=== PATIENT | female | born 1955 | race Caucasian/White ===

== ENCOUNTER 2021-07-22 09:24 | Emergency (ER) | payer MEDICARE, OTHER, SELFPAY ==
[2021-07-22 09:30] VITALS: BP 138/89; PULSE 93; RESP 18; TEMP 36.7; O2SAT 99; BMI 31.4
--- NOTE | 2021-07-22 11:24 | ED_ITS ---
HPI - Back Pain/Injury General Chief Complaint: Back Pain/Injury Stated Complaint: Injured left side of back, swollen, trouble walkin Time Seen by Provider: 07/22/21 11:18 Source: patient and family Mode of arrival: Ambulatory Limitations: no limitations History of Present Illness HPI Narrative: This is a 66-year-old female who comes with complaint of left-sided low back pain radiating around to her front. Patient has had a history of back issues. She has been told she has nerve damage on that side. She used to use fentanyl patches daily as well as take [place] 3 times daily. She states she stopped using the fentanyl but has run out of her narcotic pain medication. She moved to the area 1-2 months ago. She is in process of establishing with Dr. Brenden ambriz but has not been able to see him yet. She does not recall a specific exacerbating incident but her sister states she has been bending over to sweep and twisting recently and she thought that may have worsened her symptoms. The pain radiates down her thigh no new numbness, tingling or weakness in her extremity. No loss of bowel or bladder control. No saddle anesthesia. No fevers. She denies any other symptoms or issues. She had 1 fentanyl patch left over that she put on at 2:00 a.m. this morning with minimal improvement. She does take medication for hypertension, dyslipidemia as well as chronic back and nerve pain. She takes gabapentin 300 mg in the morning and 600 mg in the evening. As well as medications for diabetes. She is allergic to trazodone. She has not had back surgery but has been recommended to have injections into her low back in the past. She has not pursued this before. Related Data Home Medications Medication Instructions Recorded Confirmed fentanyl 12 mcg/hr transdermal 1 patch TRANSDERMAL Q72H 07/22/21 07/22/21 patch hydrocodone 5 mg-acetaminophen 325 1 tab PO Q8H PRN 07/22/21 07/22/21 mg tablet Previous Rx's Medication Instructions Recorded gabapentin 300 mg capsule 600 mg PO TID #30 cap 07/22/21 hydrocodone 5 mg-acetaminophen 325 1 tab PO QID PRN #10 tab 07/22/21 mg tablet Allergies Allergy/AdvReac Type Severity Reaction Status Date / Time trazodone Allergy Severe Anaphylaxis Verified 07/22/21 09:42 Review of Systems Review of Systems ROS Unobtainable: All systems reviewed & are unremarkable except as noted in HPI and below Patient History Medical History Chronic back pain Social History Smoking Status: Current every day smoker Smoking Status: Current every day smoker alcohol intake frequency: 0-2 drinks per day Substance Use Type: does not use Exam Narrative Exam Narrative: GENERAL: Alert and oriented x three, female in mild distress. HEENT: Head normocephalic, atraumatic, EOMI, pupils reactive, face symmetric, moist mucous membranes NECK: Supple, full range of motion CARDIOVASCULAR: Regular rate and rhythm without murmurs, rubs or gallops. RESPIRATORY: Breath sounds equal bilaterally, no wheezes rales or rhonchi. ABDOMEN: Soft, nontender. Normoactive bowel sounds all 4 quadrants. No guarding or rebound, rigidity, no mass : No CVA tenderness BACK: No cervical, thoracic or lumbar vertebral point tenderness. Patient does have some mild tenderness at the SI joint. She is nontender wrapping around and in the left lower quadrant. She does not have any rash or skin changes, no warmth, erythema or fluctuance. Has slightly decreased range of motion. Patient's gait is mildly antalgic. Patient normally uses a cane. Rectal exam is deferred. Muscle strength is 5/5 in lower extremities, DTRs are 2/4 and lower extremities. Dorsalis pedis and tibialis pulses are 2+ and lower extremities. Sensation is intact in the lower extremities. EXTREMITIES: Normal range of motion, no clubbing or edema. Neurovascularly intact NEUROLOGICAL: Cranial nerves II through XII grossly intact. Moving all extremities SKIN: Warm, dry, no petechiae, no rashes or lesions. Initial Vital Signs Initial Vital Signs: Vital Signs Temperature 98.1 F 07/22/21 09:30 Pulse Rate 93 H 07/22/21 09:30 Respiratory Rate 18 07/22/21 09:30 Blood Pressure 138/89 07/22/21 09:30 Pulse Oximetry 99 07/22/21 09:30 Course Orders Ordered: Discontinued Medications Hydrocodone Bitart/Acetaminophen (Hydrocodone/Acet 5/325 Tablet) 2 tab PO NOW ONE Stop: 07/22/21 11:45 Last Admin: 07/22/21 12:20 Dose: 2 tab Documented by: SUSHILA Vital Signs Vital signs: Vital Signs - 8 hr 07/22/21 12:24 Temperature 98.1 F Pulse Rate 78 Respiratory Rate 16 Blood Pressure 158/90 H Pulse Oximetry 99 MDM - Back Pain/Injury MDM Narrative Medical decision making narrative: 66-year-old female comes in with acute on chronic low back pain. No significant exacerbating features or traumatic injury. She has been seen before told she has nerve injury. She has run out of her narcotic pain medication. She is on gabapentin but has not been optimized. She is given a short course of narcotic pain medication and prescription to increase her gabapentin. She does have a new physician that she is establishing with but has not been able to see them yet. Discharge Plan Departure Patient Disposition: Home Clinical Impression: Low back pain Instructions: DI for Back Pain With Sciatica Activity Restrictions/Additional Instructions: Follow-up with Dr. Coon for recheck. Also included is referral to Dr. Lowry at the pain management clinic if you are interested. He can call for an appointment. You can take ibuprofen up to 800 mg every 8 hours. Your maximum Tylenol amount would be 3000 mg in 24 hours. You may take 1-2 tablets of [place] every 6 hours as needed for pain. You may also increase your gabapentin to 2 tablets every 8 hours. This medication is more effective if taken regularly on a daily basis. Prescription sent to [facility] in [place]. Please return for fevers, rapidly worsening or uncontrolled pain, new numbness, weakness, loss of sensation, inability to lift or move your foot or leg, loss of bowel or bladder control or other new or concerning symptoms. Prescriptions: New hydrocodone-acetaminophen 5-325 mg tablet 1 tab PO QID PRN (Reason: pain) Qty: 10 0RF gabapentin 300 mg capsule 600 mg PO TID Qty: 30 0RF No Action hydrocodone-acetaminophen [[place]] 5-325 mg Tablet 1 tab PO Q8H PRN (Reason: Back Pain) 0RF Label Comments: ran out, requesting refill Rx Instructions: Pt unsure of mg strength fentanyl 12 mcg/hr Patch 72 Hour 1 patch TRANSDERMAL Q72H 0RF Label Comments: was discontinued, had extra patches so started using yesterday. Referrals: Yahir Naik DO [Physician] -
[2021-07-22] MEDS: HYDROCODONE/ACET 5/325 TABLET 2 TAB PO (12:20)
[2021-07-22 12:24] VITALS: BP 158/90; PULSE 78; RESP 16; TEMP 36.7; O2SAT 99
== END 2021-07-22 12:24 | disposition home or self-care (01) ==
PROVIDERS: Emergency Provider Emergency Medicine
DX: M54.50 Low back pain, unspecified (principal); G89.29 Other chronic pain; F17.200 Nicotine dependence, unspecified, uncomplicated
CPT/HCPCS: 99283

== ENCOUNTER 2021-07-25 08:50 | Emergency (ER) | payer MEDICARE, OTHER, SELFPAY ==
[2021-07-25 09:00] VITALS: BP 160/75; PULSE 87; RESP 15; TEMP 36.9; O2SAT 96; BMI 31.4
--- NOTE | 2021-07-25 09:18 | ED.BACK ---
HPI - Back Pain/Injury General Chief Complaint: Back Pain/Injury Stated Complaint: Lower back/Left side body- pain Time Seen by Provider: 07/25/21 08:54 Source: patient History of Present Illness HPI Narrative: 66-year-old female smoker with history of chronic back problems presents for the 2nd time this week. She denies any specific injury but has been in the process of moving and is noted that her left lower back has been increasingly painful. It does radiate around to her left anterior thigh. She denies any numbness, tingling or weakness. She denies any loss of control of bowel or bladder. She has no footdrop. She has no fever or chills and denies the use of blood thinners. Her pain is worse when she moves and improves with rest. She is new to the area and has not been able to establish with a new provider yet. Related Data Home Medications Medication Instructions Recorded Confirmed fentanyl 12 mcg/hr transdermal 1 patch TRANSDERMAL Q72H 07/22/21 07/22/21 patch hydrocodone 5 mg-acetaminophen 325 1 tab PO Q8H PRN 07/22/21 07/22/21 mg tablet Previous Rx's Medication Instructions Recorded gabapentin 300 mg capsule 600 mg PO TID #30 cap 07/22/21 hydrocodone 5 mg-acetaminophen 325 1 tab PO QID PRN #10 tab 07/22/21 mg tablet ketorolac 10 mg tablet 10 mg PO Q6H PRN #14 tab 07/25/21 lidocaine 5 % topical patch 1 patch TOP DAILY #15 each 07/25/21 (Lidoderm) Allergies Allergy/AdvReac Type Severity Reaction Status Date / Time trazodone Allergy Severe Anaphylaxis Verified 07/25/21 09:03 Review of Systems Review of Systems Narrative: GENERAL: Denies chills, fatigue, malaise, fever, sweats. HEENT: Denies sinus pain, ear pain, sore throat, difficulty swallowing, dizziness. RESPIRATORY: Denies dyspnea, cough, wheezing, hemoptysis, sputum. CARDIOVASCULAR: Denies chest pain, palpitations, orthopnea, edema, GASTROINTESTINAL: Denies nausea, vomiting, abdominal pain, diarrhea, constipation, melena. : Denies dysuria, frequency, incontinence, hematuria, urinary retention. MUSCULOSKELETAL: See HPI SKIN: Denies rash, skin lesions, or other NEUROLOGIC: Denies weakness, headache, numbness, change in speech, confusion, seizures, incoordination. PSYCHIATRIC: No concerning psychosocial issues. 12 point review of systems is negative except for those stated above Patient History Medical History Chronic back pain Social History Smoking Status: Current every day smoker Smoking Status: Current every day smoker alcohol intake frequency: holidays/special occasions only Substance Use Type: marijuana Exam Narrative Exam Narrative: GEN: AOx3 and in mild distress EYES: Pupils are equal, round, and reactive to light and accommodation. Extraoccular muscles are intact bilaterally. There is no subconjunctival hemorrhage or exudate. CHEST: Lungs are clear to auscultation bilaterally and free of wheezes, rales, or rhonchi. Heart rate is regular rhythm, there are no murmurs, clicks, rubs, or gallops. There is no chest wall tenderness. ABD: Abdomen is soft and nontender. There is no guarding or rebound. Bowel sounds are normal in all 4 quadrants. There is no mass or organomegaly. BACK: granulator tender but free of any obvious external abnormalities. Patient exam notes decreased range of motion and muscle spasm, but no CVA tenderness, or vertebral point tenderness. There are no symptoms of cauda equina such as saddle anesthesia, and decreased reflexes, decreased sensation or strength. EXT: Full painless ROM of all extremities with no loss of sensation or strength. SKIN: Warm, pink, and dry. No erythema or rash Initial Vital Signs Initial Vital Signs: Vital Signs Temperature 98.5 F 07/25/21 09:00 Pulse Rate 87 07/25/21 09:00 Respiratory Rate 15 07/25/21 09:00 Blood Pressure 160/75 H 07/25/21 09:00 Pulse Oximetry 96 07/25/21 09:00 Course Vital Signs Vital signs: Vital Signs - 8 hr 07/25/21 09:00 Temperature 98.5 F Pulse Rate 87 Respiratory Rate 15 Blood Pressure 160/75 H Pulse Oximetry 96 Discharge Plan Departure Patient Disposition: Home Clinical Impression: Acute back pain with radiculopathy Instructions: DI for Low Back Pain Activity Restrictions/Additional Instructions: *You have been diagnosed with [Acute lumbar pain with radiculopathy ] *What to do: *Please continue to take your regular medications as directed. [ x] New medication prescriptions sent to your pharmacy: [[facility] infrequent ] [ ] New medication written as a paper prescription [ ] No new medications given *Please follow up with your primary care provider in 2-3 days, call for an appointment. Let them know you were seen in the Emergency Department and that we ask that you be seen in follow up. We will electronically transmit a record of today's note if your PCP is in our system *If you do not have a primary care provider please contact the [facility] Resource line at [phone]. They will ask some questions about your medical history and help get you set up with a doctor in the community. *Return to Emergency Department if you should have any new, worsening or concerning symptoms, such as [fever greater than 101 F, shaking chills, worsening pain, persistent vomiting or other bothersome symptoms] Prescriptions: New ketorolac 10 mg tablet 10 mg PO Q6H PRN (Reason: pain) Qty: 14 0RF lidocaine [Lidoderm] 5 % adhesive patch,medicated 1 patch TOP DAILY Qty: 15 0RF Rx Instructions: leave on most painful area for 12 hrs No Action hydrocodone-acetaminophen [[place]] 5-325 mg Tablet 1 tab PO Q8H PRN (Reason: Back Pain) 0RF Label Comments: ran out, requesting refill Rx Instructions: Pt unsure of mg strength fentanyl 12 mcg/hr Patch 72 Hour 1 patch TRANSDERMAL Q72H 0RF Label Comments: was discontinued, had extra patches so started using yesterday. hydrocodone-acetaminophen 5-325 mg tablet 1 tab PO QID PRN (Reason: pain) Qty: 10 0RF gabapentin 300 mg capsule 600 mg PO TID Qty: 30 0RF Referrals: Jame Coon DO [Primary Care Provider] -
[2021-07-25] MEDS: LIDOCAINE PATCH 1 EACH ADH..PATCH TOP (09:22)
[2021-07-25] MEDS: KETOROLAC 30 MG/ML VIAL IM (09:23)
[2021-07-25 09:49] VITALS: BP 144/119; PULSE 81; O2SAT 94
== END 2021-07-25 09:49 | disposition home or self-care (01) ==
PROVIDERS: Emergency Provider Emergency Medicine; PCP Family Medicine
DX: M54.50 Low back pain, unspecified (principal); M54.10 Radiculopathy, site unspecified; F17.200 Nicotine dependence, unspecified, uncomplicated
CPT/HCPCS: 96372; 99283; J1885

== ENCOUNTER → 2021-09-12 08:34 | Outpatient (CLI) | payer MEDICARE, SELFPAY ==
[2021-09-12 10:22] LABS: Add Manual Diff / Slide Review NO; Basophils Absolute Auto 0 /uL (0-100); Basophils Percent Auto 0.3 % (0-2); Eosinophils Absolute Auto 300 /uL (0-450); Eosinophils Percent Auto 2.4 % (2-4); Hematocrit 39.9 % (36-46); Hemoglobin 13.6 g/dL (12.0-16.0); Lymphocytes Absolute Auto 3400 /uL (1100-4500); Lymphocytes Percent Auto 30.9 % (25-40); Mean Corpuscular Hemoglobin 30.5 PG (26-34); Mean Corpuscular Volume 89.7 fL (80-100); Monocytes Absolute Auto 600 /uL (0-900); Monocytes Percent Auto 5.6 % (3-14); Neutrophils Absolute Auto 6600 /uL (1500-7000); Neutrophils Percent Auto 60.8 % (50-75); Platelet Count 360 X10^3/uL (150-400); Red Blood Cell Count 4.44 X10^6/uL (4.0-5.2); Red Cell Distribution Width 14.3 % (11.6-14.8); White Blood Cell Count 10.9 X10^3/uL (4.5-11.0)
[2021-09-12 10:29] LABS: Hemoglobin A1C% w Est Avg Glu 8.1 % (4.0-6.0)
[2021-09-12 10:57] LABS: Alanine Aminotransferase 15 IU/L (<35); Albumin 3.9 g/dL (3.5-5.0); Albumin Globulin Ratio 1.6 (1.0-2.8); Alkaline Phosphatase 85 U/L (38-126); Aspartate Aminotransferase 22 IU/L (14-36); BUN Creatinine Ratio 18.8 (6-22); Bilirubin Total 0.4 mg/dL (0.2-1.3); Blood Urea Nitrogen 13 mg/dL (7-17); Calcium 9.5 mg/dL (8.4-10.2); Carbon Dioxide 30 mmol/L (22-32); Chloride 105 mmol/L (98-107); Cholesterol 129 mg/dL (140-199); Estimated Glomerular Filt Rate > 60.0 mL/min (>60); Globulin 2.5 g/dL (1.7-4.1); Glucose 103 mg/dL (80-110); HDL Cholesterol 45 mg/dL (40-60); HEMOLYSIS < 15 (0-50); LDL Cholesterol Calculated 66 mg/dL (<100); Potassium 4.5 mmol/L (3.4-5.1); Sodium 139 mmol/L (137-145); Total Protein 6.4 g/dL (6.3-8.2); Triglycerides 91 mg/dL (35-150)
[2021-09-12 11:04] LABS: Vitamin D 25 Hydroxy (D3) 17.9 ng/mL (30.0-100.0)
== END ==
PROVIDERS: PCP Family Medicine; Referring Provider Family Medicine; Visit Provider Family Medicine
DX: E11.9 Type 2 diabetes mellitus without complications (principal); E55.9 Vitamin D deficiency, unspecified; Z79.4 Long term (current) use of insulin
CPT/HCPCS: 36415; 80053; 80061; 82306; 83036; 85025

== ENCOUNTER → 2021-12-17 10:30 | Outpatient (CLI) | payer MEDICARE, SELFPAY ==
[2021-12-17 12:06] LABS: Hemoglobin A1C% w Est Avg Glu 8.3 % (4.0-6.0)
== END ==
PROVIDERS: PCP Family Medicine; Referring Provider Family Medicine; Visit Provider Family Medicine
DX: E11.9 Type 2 diabetes mellitus without complications (principal); Z79.4 Long term (current) use of insulin
CPT/HCPCS: 36415; 83036

== ENCOUNTER → 2022-04-01 08:16 | Outpatient (CLI) | payer MEDICARE, SELFPAY ==
[2022-04-01 10:09] LABS: Hematocrit 41.3 % (36-46); Hemoglobin 14.1 g/dL (12.0-16.0); Mean Corpuscular HGB Conc 34.2 % (30-36); Mean Corpuscular Hemoglobin 29.9 PG (26-34); Mean Corpuscular Volume 87.6 fL (80-100); Platelet Count 355 X10^3/uL (150-400); Red Blood Cell Count 4.72 X10^6/uL (4.0-5.2); White Blood Cell Count 8.3 X10^3/uL (4.5-11.0)
[2022-04-01 10:18] LABS: Alanine Aminotransferase 15 IU/L (<35); Albumin 4.1 g/dL (3.5-5.0); Albumin Globulin Ratio 1.6 (1.0-2.8); Alkaline Phosphatase 79 U/L (38-126); Aspartate Aminotransferase 20 IU/L (14-36); BUN Creatinine Ratio 16.9 (6-22); Bilirubin Total 0.4 mg/dL (0.2-1.3); Blood Urea Nitrogen 13 mg/dL (7-17); Calcium 9.2 mg/dL (8.4-10.2); Carbon Dioxide 30 mmol/L (22-32); Chloride 103 mmol/L (98-107); Estimated Glomerular Filt Rate > 60 mL/min (>60); Globulin 2.5 g/dL (1.7-4.1); Glucose 96 mg/dL (80-110); HEMOLYSIS < 15 (0-50); Potassium 4.4 mmol/L (3.4-5.1); Sodium 139 mmol/L (137-145); Total Protein 6.6 g/dL (6.3-8.2)
[2022-04-01 10:37] LABS: Hemoglobin A1C% w Est Avg Glu 7.1 % (4.0-6.0)
== END ==
PROVIDERS: PCP Family Medicine; Referring Provider Family Medicine; Visit Provider Family Medicine
DX: E11.9 Type 2 diabetes mellitus without complications (principal); Z79.4 Long term (current) use of insulin
CPT/HCPCS: 36415; 80053; 83036; 85027

== ENCOUNTER → 2022-04-04 12:29 | Outpatient (CLI) | payer MEDICARE, SELFPAY ==
--- NOTE | 2022-04-04 12:31 | DI.RAD.S_ITS ---
PROCEDURE: XR HAND RT MIN 3V INDICATIONS: pain in thumb and digits 2,3 TECHNIQUE: 3 views of the hand(s) acquired. COMPARISON: None. FINDINGS: Bones: No fractures or dislocations. Carpal bones are normally aligned. No suspicious bony lesions. Generalized decrease in osseous mineralization noted. Soft tissues: No suspicious soft tissue calcifications. IMPRESSION: Osteopenia without fracture or foreign body Approved by: Emir Irwin M.D. on 04/04/2022 at 15:21
[2022-04-04 13:46] LABS: C-Reactive Protein Quant < 0.5 mg/dL (<1.0); Erythrocyte Sedimentation Rate 7 MM/HR (0-20); Rheumatoid Factor < 8.6 IU/mL (<12.0); Uric Acid 3.7 mg/dL (2.5-6.2)
[2022-04-08 22:57] LABS: CCP Antibodies IgG/IgA 7 units (0-19)
== END ==
PROVIDERS: PCP Family Medicine; Referring Provider Family Medicine; Visit Provider Family Medicine
DX: M79.644 Pain in right finger(s) (principal); M79.89 Other specified soft tissue disorders
CPT/HCPCS: 36415; 73130; 84550; 85651; 86140; 86200; 86430

== ENCOUNTER → 2022-04-23 10:27 | Outpatient (CLI) | payer MEDICARE, SELFPAY | PROVIDERS: PCP Family Medicine; Referring Provider Family Medicine; Visit Provider Family Medicine | DX: Z13.820 Encounter for screening for osteoporosis (principal); M85.852 Other specified disorders of bone density and structure, left thigh; Z78.0 Asymptomatic menopausal state | CPT/HCPCS: 77080; 77081 ==

== ENCOUNTER → 2022-09-09 10:28 | Outpatient (CLI) | payer MEDICARE, MEDICAID, SELFPAY ==
[2022-09-09 11:57] LABS: Hemoglobin A1C% w Est Avg Glu 7.5 % (4.0-6.0)
[2022-09-09 11:58] LABS: Add Manual Diff / Slide Review NO; Basophils Absolute Auto 0 /uL (0-100); Basophils Percent Auto 0.5 % (0-2); Eosinophils Absolute Auto 100 /uL (0-450); Eosinophils Percent Auto 1.2 % (2-4); Hematocrit 41.7 % (36-46); Hemoglobin 13.9 g/dL (12.0-16.0); Lymphocytes Absolute Auto 2300 /uL (1100-4500); Lymphocytes Percent Auto 33.4 % (25-40); Mean Corpuscular HGB Conc 33.3 % (30-36); Mean Corpuscular Hemoglobin 29.2 PG (26-34); Mean Corpuscular Volume 87.8 fL (80-100); Monocytes Absolute Auto 500 /uL (0-900); Monocytes Percent Auto 6.7 % (3-14); Neutrophils Absolute Auto 4000 /uL (1500-7000); Neutrophils Percent Auto 58.2 % (50-75); Platelet Count 341 X10^3/uL (150-400); Red Blood Cell Count 4.75 X10^6/uL (4.0-5.2); Red Cell Distribution Width 13.2 % (11.6-14.8); White Blood Cell Count 6.8 X10^3/uL (4.5-11.0)
[2022-09-09 12:20] LABS: Alanine Aminotransferase 18 IU/L (<35); Albumin Globulin Ratio 1.5 (1.0-2.8); Alkaline Phosphatase 89 U/L (38-126); Aspartate Aminotransferase 30 IU/L (14-36); BUN Creatinine Ratio 15.3 (6-22); Bilirubin Total 0.4 mg/dL (0.2-1.3); Blood Urea Nitrogen 11 mg/dL (7-17); Calcium 9.4 mg/dL (8.4-10.2); Carbon Dioxide 31 mmol/L (22-32); Chloride 103 mmol/L (98-107); Cholesterol 133 mg/dL (140-199); Estimated Glomerular Filt Rate > 60 mL/min (>60); Globulin 2.7 g/dL (1.7-4.1); Glucose 105 mg/dL (80-110); HDL Cholesterol 47 mg/dL (40-60); HEMOLYSIS < 15 (0-50); LDL Cholesterol Calculated 65 mg/dL (<100); Potassium 4.7 mmol/L (3.4-5.1); Sodium 140 mmol/L (137-145); Total Protein 6.7 g/dL (6.3-8.2); Triglycerides 107 mg/dL (35-150)
[2022-09-09 12:30] LABS: Vitamin D 25 Hydroxy (D3) 21.9 ng/mL (30.0-100.0)
[2022-09-09 12:47] LABS: Creatinine Urine Random 40.1 mg/dL
[2022-09-09 13:01] LABS: Microalbumin Urine Random < 0.6 mg/dL (0-1.6)
== END ==
PROVIDERS: PCP Family Medicine; Referring Provider Family Medicine; Visit Provider Family Medicine
DX: E11.9 Type 2 diabetes mellitus without complications (principal); Z79.4 Long term (current) use of insulin; E55.9 Vitamin D deficiency, unspecified; I95.9 Hypotension, unspecified; M85.9 Disorder of bone density and structure, unspecified; Z13.820 Encounter for screening for osteoporosis; M85.80 Other specified disorders of bone density and structure, unspecified site; Z78.0 Asymptomatic menopausal state
CPT/HCPCS: 36415; 80053; 80061; 82043; 82306; 82570; 83036; 85025

== ENCOUNTER → 2022-12-16 08:44 | Outpatient (CLI) | payer MEDICARE, MEDICAID, SELFPAY ==
[2022-12-17 06:01] LABS: Labcorp Hemoglobin (Hb) A1c 7.4 % (4.8-5.6)
== END ==
PROVIDERS: PCP Family Medicine; Referring Provider Family Medicine; Visit Provider Family Medicine
DX: E55.9 Vitamin D deficiency, unspecified; Z79.4 Long term (current) use of insulin; E11.9 Type 2 diabetes mellitus without complications
CPT/HCPCS: 36415; 82306; 83036

== ENCOUNTER → 2023-05-13 08:51 | Outpatient (CLI) | payer MEDICARE, MEDICAID, SELFPAY ==
[2023-05-13 10:11] LABS: Hemoglobin A1C% w Est Avg Glu 8.4 % (4.0-6.0)
[2023-05-13 10:35] LABS: Vitamin D 25 Hydroxy (D3) 44.2 ng/mL (30.0-100.0)
== END ==
PROVIDERS: PCP Family Medicine; Referring Provider Family Medicine; Visit Provider Family Medicine
DX: E11.9 Type 2 diabetes mellitus without complications (principal); E55.9 Vitamin D deficiency, unspecified
CPT/HCPCS: 36415; 82306; 83036

== ENCOUNTER → 2023-08-18 08:59 | Outpatient (CLI) | payer MEDICARE, MEDICAID, SELFPAY ==
[2023-08-18 10:08] LABS: Hemoglobin A1C% w Est Avg Glu 8.8 % (4.0-6.0)
== END ==
LOC: LAB 09:00
PROVIDERS: PCP Family Medicine; Referring Provider Family Medicine; Visit Provider Family Medicine
DX: E11.9 Type 2 diabetes mellitus without complications (principal)
CPT/HCPCS: 36415; 83036

== ENCOUNTER → 2023-12-17 09:50 | Outpatient (CLI) | payer MEDICARE, MEDICAID, SELFPAY ==
[2023-12-17 10:24] LABS: Add Manual Diff / Slide Review NO; Basophils Absolute Auto 100 /uL (0-100); Basophils Percent Auto 0.6 % (0-2); Eosinophils Absolute Auto 200 /uL (0-450); Eosinophils Percent Auto 2.1 % (2-4); Hematocrit 41.1 % (36-46); Hemoglobin 13.9 g/dL (12.0-16.0); Lymphocytes Absolute Auto 3300 /uL (1100-4500); Lymphocytes Percent Auto 40.3 % (25-40); Mean Corpuscular HGB Conc 33.8 % (30-36); Mean Corpuscular Hemoglobin 29.7 PG (26-34); Monocytes Absolute Auto 500 /uL (0-900); Monocytes Percent Auto 6.4 % (3-14); Neutrophils Absolute Auto 4100 /uL (1500-7000); Neutrophils Percent Auto 50.6 % (50-75); Platelet Count 327 X10^3/uL (150-400); Red Blood Cell Count 4.67 X10^6/uL (4.0-5.2); Red Cell Distribution Width 13.5 % (11.6-14.8); White Blood Cell Count 8.1 X10^3/uL (4.5-11.0)
[2023-12-17 20:24] LABS: Alanine Aminotransferase 17 IU/L (<35); Albumin 3.9 g/dL (3.5-5.0); Albumin Globulin Ratio 1.8 (1.0-2.8); Alkaline Phosphatase 76 U/L (38-126); Aspartate Aminotransferase 23 IU/L (14-36); BUN Creatinine Ratio 19.4 (6-22); Bilirubin Total 0.4 mg/dL (0.2-1.3); Blood Urea Nitrogen 14 mg/dL (7-17); Calcium 9.3 mg/dL (8.4-10.2); Carbon Dioxide 29 mmol/L (22-32); Chloride 105 mmol/L (98-107); Cholesterol 130 mg/dL (140-199); Estimated Glomerular Filt Rate > 60 mL/min (>60); Globulin 2.2 g/dL (1.7-4.1); Glucose 146 mg/dL (80-110); HDL Cholesterol 51 mg/dL (40-60); HEMOLYSIS < 15 (0-50); LDL Cholesterol Calculated 59 mg/dL (<100); Potassium 4.3 mmol/L (3.4-5.1); Sodium 138 mmol/L (137-145); Total Protein 6.1 g/dL (6.3-8.2); Triglycerides 99 mg/dL (35-150)
== END ==
PROVIDERS: PCP Family Medicine; Referring Provider Family Medicine; Visit Provider Family Medicine
DX: E11.9 Type 2 diabetes mellitus without complications (principal)
CPT/HCPCS: 36415; 80053; 80061; 83036; 85025

== ENCOUNTER → 2024-04-08 08:26 | Outpatient (CLI) | payer MEDICARE, MEDICAID, SELFPAY ==
[2024-04-08 10:25] LABS: Hemoglobin A1C% w Est Avg Glu 7.1 % (4.0-6.0)
== END ==
PROVIDERS: PCP Family Medicine; Referring Provider Family Medicine; Visit Provider Family Medicine
DX: E11.9 Type 2 diabetes mellitus without complications (principal); Z79.4 Long term (current) use of insulin
CPT/HCPCS: 36415; 83036

== ENCOUNTER → 2024-06-11 07:48 | Outpatient (CLI) | payer MEDICARE, MEDICAID, SELFPAY ==
[2024-06-11 08:53] LABS: Add Manual Diff / Slide Review NO; Basophils Absolute Auto 0 /uL (0-100); Basophils Percent Auto 0.4 % (0-2); Eosinophils Absolute Auto 200 /uL (0-450); Hemoglobin 14.6 g/dL (12.0-16.0); Lymphocytes Absolute Auto 2800 /uL (1100-4500); Lymphocytes Percent Auto 30.7 % (25-40); Mean Corpuscular Hemoglobin 29.8 PG (26-34); Mean Corpuscular Volume 87.7 fL (80-100); Monocytes Absolute Auto 600 /uL (0-900); Monocytes Percent Auto 6.5 % (3-14); Neutrophils Absolute Auto 5600 /uL (1500-7000); Neutrophils Percent Auto 60.4 % (50-75); Platelet Count 361 X10^3/uL (150-400); Red Blood Cell Count 4.91 X10^6/uL (4.0-5.2); Red Cell Distribution Width 13.9 % (11.6-14.8); White Blood Cell Count 9.2 X10^3/uL (4.5-11.0)
[2024-06-11 09:07] LABS: Hemoglobin A1C% w Est Avg Glu 7.3 % (4.0-6.0)
[2024-06-11 09:16] LABS: Alanine Aminotransferase 21 IU/L (<35); Albumin 4.1 g/dL (3.5-5.0); Albumin Globulin Ratio 1.7 (1.0-2.8); Alkaline Phosphatase 92 U/L (38-126); Aspartate Aminotransferase 26 IU/L (14-36); BUN Creatinine Ratio 22.4 (6-22); Bilirubin Total 0.5 mg/dL (0.2-1.3); Blood Urea Nitrogen 17 mg/dL (7-17); Calcium 10.2 mg/dL (8.4-10.2); Carbon Dioxide 31 mmol/L (22-32); Chloride 107 mmol/L (98-107); Estimated Glomerular Filt Rate > 60 mL/min (>60); Globulin 2.4 g/dL (1.7-4.1); Glucose 126 mg/dL (80-110); HEMOLYSIS < 15 (0-50); Potassium 5.1 mmol/L (3.4-5.1); Sodium 141 mmol/L (137-145); Total Protein 6.5 g/dL (6.3-8.2)
== END ==
PROVIDERS: PCP Family Medicine; Referring Provider Family Medicine; Visit Provider Family Medicine
DX: E11.9 Type 2 diabetes mellitus without complications (principal); Z79.4 Long term (current) use of insulin; Z68.32 Body mass index [BMI] 32.0-32.9, adult
CPT/HCPCS: 36415; 80053; 83036; 85025

== ENCOUNTER 2024-09-28 08:36 | Emergency (ER) | payer MEDICARE, MEDICAID, SELFPAY ==
[2024-09-28] VITALS (12 sets, daily range): BP systolic 135–190; BP diastolic 63–83; PULSE 76–96; RESP 14–23; TEMP 36.5; O2SAT 95–99; BMI 32.3
--- NOTE | 2024-09-28 09:05 | EKG_ITS ---
[address] [address] Test Date: 2024-09-28 Pat Name: Marilu Heath Department: [facility] Room: Gender: Female Electrical Mechanic: CCHKATHLEEN : 1955 Requested By: Order Number: [id number] Reading MD: Wayne Champion Measurements Intervals [place] Rate: 88 P: 78 NH: 140 QRS: -26 QRSD: 80 T: 87 QT: 370 QTc: 447 Interpretive Statements Normal sinus rhythm Anteroseptal infarct , age undetermined Electronically Signed On 09-28-2024 15:09:48 PST by Wayne Champion
[2024-09-28 09:29] LABS: Add Manual Diff / Slide Review NO; Basophils Absolute Auto 100 /uL (0-100); Basophils Percent Auto 0.6 % (0-2); Eosinophils Absolute Auto 100 /uL (0-450); Eosinophils Percent Auto 0.7 % (2-4); Hematocrit 46.5 % (36-46); Lymphocytes Absolute Auto 3100 /uL (1100-4500); Lymphocytes Percent Auto 26.3 % (25-40); Mean Corpuscular HGB Conc 34.4 % (30-36); Mean Corpuscular Volume 87.2 fL (80-100); Monocytes Absolute Auto 700 /uL (0-900); Monocytes Percent Auto 6.3 % (3-14); Neutrophils Absolute Auto 7800 /uL (1500-7000); Neutrophils Percent Auto 66.1 % (50-75); Platelet Count 361 X10^3/uL (150-400); Red Blood Cell Count 5.34 X10^6/uL (4.0-5.2); Red Cell Distribution Width 13.6 % (11.6-14.8); White Blood Cell Count 11.9 X10^3/uL (4.5-11.0)
[2024-09-28 09:41] LABS: Alanine Aminotransferase 43 IU/L (<35); Albumin Globulin Ratio 1.6 (1.0-2.8); Alkaline Phosphatase 121 U/L (38-126); Aspartate Aminotransferase 40 IU/L (14-36); BUN Creatinine Ratio 27.1 (6-22); Bilirubin Total 0.8 mg/dL (0.2-1.3); Blood Urea Nitrogen 23 mg/dL (7-17); Carbon Dioxide 23 mmol/L (22-32); Chloride 98 mmol/L (98-107); Estimated Glomerular Filt Rate > 60 mL/min (>60); Globulin 3.2 g/dL (1.7-4.1); Glucose 406 mg/dL (80-110); HEMOLYSIS 17 (0-50); Lipase 90 U/L (23-300); Potassium 4.2 mmol/L (3.4-5.1); Sodium 135 mmol/L (137-145); Total Protein 8.2 g/dL (6.3-8.2)
[2024-09-28 10:18] LABS: Base Excess VBG -0.4 mmol/L (0-4); HCO3 VBG 25 mmol/L (24-28); Oxygen Saturation VBG 60 % (70-75); PCO2 VBG 44.4 mmHg (45-50); PO2 VBG 33 mmHg (35-45); Total CO2 VBG 25 mmol/L (24-29); pH VBG 7.36 (7.33-7.43)
[2024-09-28 10:31] LABS: Lactate (Lactic Acid) 1.8 mmol/L (0.7-2.1)
--- NOTE | 2024-09-28 10:40 | PC.NURSE ---
Pt reports her insurance will not cover her insulin; pt states she has not taken her insulin for the past couple of weeks or checked her sugar except for today---pt states she felt heavy and noticed her BS was 390. Pt denies abd pain. Respirations regular and unlabored. Pt states she did take one of her last does of long acting insulin. Pt denies having a previous prescription for short acting insulin.
[2024-09-28 10:45] LABS: Creatine Kinase 163 U/L (30-135)
[2024-09-28 10:51] LABS: Ketones (Beta-Hydroxybutyrate) 0.27 mmol/L (<0.27)
[2024-09-28 10:59] LABS: Troponin I < 0.012 ng/mL (0.01-0.034)
--- NOTE | 2024-09-28 11:13 | ED.GENADULT ---
HPI - General Adult General Chief complaint: Diabetic Problem Stated complaint: High sugar levels 361 this morning Time Seen by Provider: 09/28/24 10:19 Source: patient Mode of arrival: Family Vehicle History of Present Illness HPI narrative: Patient is a 69-year-old female history of insulin-dependent diabetes hypertension hyperlipidemia presents today with hyperglycemia. She reports that she has been out of her Lantus for about 2 weeks. She has been fighting with insurance who will now no longer pay for it. The pharmacy allowed her to pay 20 dollars for Lantus pen so she just restarted that. She has not on any short-acting insulin currently. She has absolutely no symptoms. No abdominal pain nausea vomiting no chest pain shortness of breath no fever or chills. She just is concerned because her sugar was elevated this morning. Related Data Previous Rx's Medication Instructions Recorded blood sugar diagnostic (FreeStyle #100 ea 12/24/21 Lite Strips) cholecalciferol (vitamin D3) 1,250 1,250 mcg PO QWEEK #8 tabs 12/18/22 mcg (50,000 unit) tablet atorvastatin 40 mg tablet 40 mg PO BEDTIME #90 tabs 06/03/24 gabapentin 300 mg capsule See Rx Instructions .Route 06/03/24 .COMPLEX #180 caps cyclobenzaprine 10 mg tablet 10 mg PO TID #90 tabs 07/07/24 pen needle, diabetic 31 gauge x #200 ea 08/01/24 5/16 (Droplet Pen Needle) hydrocodone 5 mg-acetaminophen 325 See Rx Instructions .Route 08/30/24 mg tablet .COMPLEX #120 tabs insulin glargine 100 unit/mL (3 12 unit (0.12 mL) SUBCUT BID #15 mL 09/01/24 mL) subcutaneous pen (Basaglar KwikPen U-100 Insulin) enalapril maleate 5 mg tablet 5 mg PO DAILY #30 tabs 09/06/24 insulin glargine 100 unit/mL (3 25 unit (0.25 mL) SUBCUT BID #3 mL 09/22/24 mL) subcutaneous pen (Lantus Solostar U-100 Insulin) cephalexin 500 mg capsule 500 mg PO BID 5 days #10 caps 09/28/24 Allergies Allergy/AdvReac Type Severity Reaction Status Date / Time trazodone Allergy Severe Anaphylaxis Verified 09/28/24 09:04 bee venom protein (honey bee) Allergy Intermediate Hives Verified 09/28/24 09:04 Patient History Medical History Trigger finger, right ring finger BMI 32.0-32.9,adult Bilateral hand pain Trigger finger of both hands Somatic dysfunction of lower extremity Pain in toe of right foot Tobacco abuse counseling Upper extremity somatic dysfunction Osteopenia after menopause Low bone density Screening for osteoporosis Swelling of thumb, left Pain of right thumb Swallowing problem Vitamin D deficiency Family history of malignant neoplasm of colon Psoriasis Scoliosis Lumbar disc disease Mumps Measles Chicken pox Diabetes mellitus (~1994) Chronic back pain Surgical History Anesthesia History of surgery on wrist History of tubal ligation Family History Mother Cancer Diabetes mellitus History of heart disease Hyperlipidemia Hypertension Brother Diabetes mellitus History of heart disease Sister History of heart disease Social History Smoking Status: Current every day smoker alcohol intake: never substance use type: marijuana Smoking Status: Current every day smoker tobacco type: cigarettes alcohol intake frequency: holidays/special occasions only Exam Initial Vital Signs Initial Vital Signs: Vital Signs Temperature 97.7 F 09/28/24 08:58 Pulse Rate 87 09/28/24 08:58 Respiratory Rate 18 09/28/24 08:58 Blood Pressure 190/83 H 09/28/24 08:58 Pulse Oximetry 99 09/28/24 08:58 Oxygen Delivery Method Room Air 09/28/24 08:58 GENERAL: Alert well-appearing 69-year-old female and in no acute distress. HEENT: Head atraumatic,EOMI, pupils reactive, face symmetric, moist mucous membranes CARDIOVASCULAR: Regular rate and rhythm without murmurs, rubs or gallops. RESPIRATORY: Breath sounds equal bilaterally, no wheezes rales or rhonchi. ABDOMEN: Soft, nontender. Normoactive bowel sounds all 4 quadrants. No guarding or rebound. EXTREMITIES: Normal range of motion, no clubbing or edema. Neurovascularly intact NEUROLOGICAL: Alert and oriented x4.Normal gait and speech. Cranial nerves II through XII grossly intact. SKIN: Warm, dry, no laceration, no petechiae, no rashes or lesions. Course Orders Ordered: ED Orders 09/28/24 09:05 EKG-12 Lead Stat 09/28/24 09:17 Complete Blood Count AUTO DIFF Stat Comprehensive Metabolic Panel Stat Ketones (Beta-Hydroxybutyrate) Stat Lactate (Lactic Acid) Stat Lipase Stat Troponin & CK Cardiac Panel Stat 09/28/24 09:43 Venous Blood Gas STAT 09/28/24 10:12 Consult to FOOD TECHNOLOGIST - Mobile Web Application Developer Stat 09/28/24 10:15 Venous Blood Gas Routine 09/28/24 10:30 Urine Culture Stat Urine Microscopic Stat Discontinued Medications Insulin Human NPH (Insulin Nph 100 Unit/Ml 10ml Vial) 10 unit SUBCUT NOW ONE Stop: 09/28/24 11:29 Last Admin: 09/28/24 11:53 Dose: 10 unit Documented By: SRIDEVI Co-signed By: FREDRICK Ondansetron HCl (Ondansetron 4 Mg/2 Ml Inj) 4 mg IV NOW PRN PRN Reason: Nausea And Vomiting Ondansetron HCl (Ondansetron 4 Mg Odt) 4 mg PO NOW PRN PRN Reason: Nausea And Vomiting Vital Signs Vital signs: Vital Signs - 8 hr 09/28/24 08:58 09/28/24 09:17 09/28/24 09:18 Temperature 97.7 F Pulse Rate 87 96 H 94 H Respiratory Rate 18 Blood Pressure 190/83 H Pulse Oximetry 99 95 98 Oxygen Delivery Method Room Air 09/28/24 09:18 09/28/24 09:30 09/28/24 09:31 Temperature Pulse Rate 80 81 Respiratory Rate 14 15 Blood Pressure 161/73 H Pulse Oximetry 96 96 Oxygen Delivery Method 09/28/24 09:31 09/28/24 10:00 09/28/24 10:01 Temperature Pulse Rate 79 80 Respiratory Rate 19 23 Blood Pressure 135/63 Pulse Oximetry 95 95 Oxygen Delivery Method 09/28/24 10:01 09/28/24 10:43 09/28/24 10:44 Temperature Pulse Rate 87 80 Respiratory Rate 22 14 Blood Pressure 138/64 Pulse Oximetry 96 98 Oxygen Delivery Method 09/28/24 10:44 09/28/24 11:00 09/28/24 11:00 Temperature Pulse Rate 76 Respiratory Rate 16 Blood Pressure 137/63 137/65 Pulse Oximetry 96 Oxygen Delivery Method 09/28/24 11:30 09/28/24 11:30 09/28/24 12:03 Temperature Pulse Rate 79 83 Respiratory Rate 16 14 Blood Pressure 155/70 H 149/65 H Pulse Oximetry 97 98 Oxygen Delivery Method Room Air Medical Decision Making Lab Data 09/28/24 09:17 09/28/24 09:17 Labs: Lab Results 09/28/24 09/28/24 09/28/24 Range/Units 09:17 10:15 10:30 WBC 11.9 H (4.5-11.0) X10^3/uL RBC 5.34 H (4.0-5.2) X10^6/uL Hgb 16.0 (12.0-16.0) g/dL Hct 46.5 H (36-46) % MCV 87.2 (80-100) fL MCH 30.0 (26-34) PG MCHC 34.4 (30-36) % RDW 13.6 (11.6-14.8) % Plt Count 361 (150-400) X10^3/uL Neut % (Auto) 66.1 (50-75) % Lymph % (Auto) 26.3 (25-40) % [place] % (Auto) 6.3 (3-14) % Eos % (Auto) 0.7 L (2-4) % Baso % (Auto) 0.6 (0-2) % Neut # (Auto) 7800 H (1241-3448) /uL Lymph # (Auto) 3100 (5964-8195) /uL [place] # (Auto) 700 (0-900) /uL Eos # (Auto) 100 (0-450) /uL Baso # (Auto) 100 (0-100) /uL VBG pH 7.36 (7.33-7.43) VBG pCO2 44.4 L (45-50) mmHg VBG pO2 33 L (35-45) mmHg VBG HCO3 25 (24-28) mmol/L VBG Total CO2 25 (24-29) mmol/L VBG O2 Saturation 60 L (70-75) % VBG Base Excess -0.4 L (0-4) mmol/L Sodium 135 L (137-145) mmol/L Potassium 4.2 (3.4-5.1) mmol/L Chloride 98 (98-107) mmol/L Carbon Dioxide 23 (22-32) mmol/L BUN 23 H (7-17) mg/dL Creatinine 0.85 (0.52-1.04) mg/dL Estimated GFR > 60 (>60) mL/min BUN/Creatinine Ratio 27.1 H (6-22) Glucose 406 H (80-110) mg/dL Lactate 1.8 (0.7-2.1) mmol/L Calcium 10.0 (8.4-10.2) mg/dL Total Bilirubin 0.8 (0.2-1.3) mg/dL AST 40 H (14-36) IU/L ALT 43 H (<35) IU/L Alkaline Phosphatase 121 (38-126) U/L Total Creatine Kinase 163 H (30-135) U/L Troponin I < 0.012 (0.01-0.034) ng/mL Total Protein 8.2 (6.3-8.2) g/dL Albumin 5.0 (3.5-5.0) g/dL Globulin 3.2 (1.7-4.1) g/dL Albumin/Globulin Ratio 1.6 (1.0-2.8) Lipase 90 (23-300) U/L Urine RBC 0-1/hpf (0-5/HPF) Urine WBC 10-30/hpf H (0-5/HPF) Ur Squamous Epith Cells 0-1 /hpf (0-5/HPF) Amorphous Sediment 1+ Urine Bacteria Many (>30) H (None) Ur Culture Indicated? Specimen cultured Vol Urine Centrifuged 10ml (spun) Ketones 0.27 H (<0.27) mmol/L Point of Care Testing Glucose POC 302 Urine Dip Bedside Urine Glucose 1000 mg/dl Bedside Urine Bilirubin - Negative Bedside Urine Ketone +/- 5 Urine Specific [place] 1.015 Bedside Urine Occult Blood + Bedside Urine pH 5.5 Bedside Urine Protein +/- 15 Bedside Urine Urobilinogen - Negative Bedside Urine Nitrite + Positive Bedside Urine Leukocytes - Negative Esterase Point of care testing: Point of Care Testing Glucose POC 302 Urine Dip Bedside Urine Glucose 1000 mg/dl Bedside Urine Bilirubin - Negative Bedside Urine Ketone +/- 5 Urine Specific [place] 1.015 Bedside Urine Occult Blood + Bedside Urine pH 5.5 Bedside Urine Protein +/- 15 Bedside Urine Urobilinogen - Negative Bedside Urine Nitrite + Positive Bedside Urine Leukocytes - Negative Esterase ECG Data Attestation: I personally reviewed and interpreted this ECG as follows: Prior ECG tracings: available for review Interpretation: Sinus rhythm rate 88 IA interval 140 QRS [address] changes no T-wave inversions MDM Narrative Medical decision making narrative: Patient is a 69-year-old female presenting today with hyperglycemia. She has actually been out of her Lantus for 2 weeks due to insurance problems. She was here today with hyperglycemia. She has no symptoms of DKA. Blood work reviewed and confirms no evidence of DKA. She was a venous pH of 7.3 Anion gap 14 Glucose 406 WBC 11.9 hemoglobin 16 hematocrit 46.5 Urinalysis positive for nitrates Patient has no evidence of DKA. She does probably have a UTI with nitrites. She was mild leukocytosis but no evidence sepsis. We will go ahead and start her on antibiotics. She was given 10 units of fast acting insulin here in the ED. She otherwise has no symptoms Discharge Plan Departure Patient Disposition: Home Clinical Impression: Acute UTI, Acute hyperglycemia Instructions: DI for Urinary Tract Infection (UTI) Activity Restrictions/Additional Instructions: *You have been diagnosed with elevated glucose and bladder infection *What to do: Your glucose maybe a little bit higher due to minor bladder infection. Blood work today is overall reassuring. *Continue to take medications as directed Keflex 500 mg twice a day for 5 days--> SENT TO [facility] Continue Lantus as prescribed *Follow up with your primary care provider in 2-3 days or call [phone] *Return to ER if you should have abdominal pain nausea vomiting fever or any new, worsening or concerning symptoms Prescriptions: New cephalexin 500 mg capsule 500 mg PO BID 5 Days Qty: 10 0RF No Action (DME) FreeStyle Lite Strips Strip See Rx Instructions .Route Qty: 100 2RF Rx Instructions: Use to check blood sugars once daily gabapentin 300 mg capsule See Rx Instructions .ROUTE .COMPLEX Qty: 180 1RF Dose Instruction: take 3 capsules by mouth three times a day Rx Instructions: take 3 capsules by mouth three times a day atorvastatin 40 mg tablet 40 mg PO BEDTIME Qty: 90 3RF cyclobenzaprine 10 mg tablet 10 mg PO TID Qty: 90 2RF (DME) pen needle, diabetic [Droplet Pen Needle] 31 gauge x 5/16 needle See Rx Instructions .Route Qty: 200 0RF Rx Instructions: USE TO INJECT VICTOZA AND BASAGLAR ONCE DAILY hydrocodone-acetaminophen 5-325 mg tablet See Rx Instructions .ROUTE .COMPLEX Qty: 120 0RF Rx Instructions: Take 1 tablet by mouth 4 times daily as needed for pain; insulin glargine [Basaglar KwikPen U-100 Insulin] 100 unit/mL (3 mL) insulin pen 12 unit SUBCUT BID Qty: 15 12RF enalapril maleate 5 mg tablet 5 mg PO DAILY Qty: 30 0RF insulin glargine [Lantus Solostar U-100 Insulin] 100 unit/mL (3 mL) insulin pen 25 unit SUBCUT BID Qty: 3 10RF Rx Instructions: Inject 25 units subcutaneously twice a day cholecalciferol (vitamin D3) 1,250 mcg (50,000 unit) tablet 1,250 mcg PO QWEEK Qty: 8 0RF Referrals: Armen Coon DO [Primary Care Provider] - Stand Alone Forms: Patient Portal/API/Survey
[2024-09-28 11:37] LABS: Amorphous Sediment Urine 1+; Bacteria Urine Many (>30); Culture Indicated Urine Specimen Cultured; RBC Urine 0-1/HPF (0-5/HPF); Squamous Epithelial Cell Urine 0-1 /HPF (0-5/HPF); Urine Volume 10mL (spun); WBC Urine 10-30/HPF (0-5/HPF)
--- NOTE | 2024-09-28 11:46 | CM.SWNOTE ---
ED SERVICE PROMOTER SALESPERSON Assessment Note: Pt is a 69yo female, resident of [place], presented to the ED due to blood glucose issues. Pt lives in a house alone, supported by her local son. Pt's Primary Care Provider is Dr. Armen Coon and insurance is Medicare, pt has a drug supplement called [employer]. Reviewed chart and discussed with multidisciplinary team pt's medical status and initial discharge needs. SERVICE PROMOTER SALESPERSON entered room to meet with patient, introduced self and role. Pt endorses she feels safe with discharging home and is in contact with her PCP and insurance company to find the brand of insulin that is covered. ED SERVICE PROMOTER SALESPERSON discussed GoodRx coupons, pt verbalized understanding. ED SERVICE PROMOTER SALESPERSON sent notification to TCM team re: pt's presentation to the ED. SERVICE PROMOTER SALESPERSON reviews this with ED provider Dr. Dobbins who indicates agreement and understanding. Plan: Pt to discharge home with son, will follow up with PCP and TCM team. LAVERNE Evans
[2024-09-28] MEDS: INSULIN NPH 100 UNIT/ML 10ML VIAL 10 UNIT SUBCUT (11:53)
== END 2024-09-28 12:06 | disposition home or self-care (01) ==
PROVIDERS: Emergency Provider Emergency Medicine; PCP Family Medicine
DX: N39.0 Urinary tract infection, site not specified (principal); E11.65 Type 2 diabetes mellitus with hyperglycemia; I10 Essential (primary) hypertension; T38.3X6A Underdosing of insulin and oral hypoglycemic [antidiabetic] drugs, initial encounter; F17.200 Nicotine dependence, unspecified, uncomplicated; Z79.4 Long term (current) use of insulin; Z91.128 Patient's intentional underdosing of medication regimen for other reason
CPT/HCPCS: 80053; 81003; 81015; 82009; 82550; 82805; 82962; 83605; 83690; 84484; 85025; 87077; 87086; 87186; 93005; 96372; 99283; 99284